=== PATIENT | male | born 1955 | race Caucasian/White ===

== ENCOUNTER 2016-08-21 11:35 | Emergency (ER) | payer BC ==
--- NOTE | 2016-08-21 12:14 | ER Document Report ---
ED GI/ - General Chief Complaint: Constipation Stated Complaint: NO BOWEL MOVEMENT Time Seen by Provider: 08/21/16 12:08 Notes: Patient is a 60-year-old male, past medical history arthritis on tramadol, presents after 24 hours of not having bowel movement. He says he normally has 2 bowel movements a day. He took the milk of magnesia just prior to arriving to the emergency room. He denies abdominal pain, rectal pain, nausea, vomiting , fevers or back pain. TRAVEL OUTSIDE OF THE [place] IN LAST 30 DAYS: No - Related Data Allergies/Adverse Reactions: No Known Allergies Allergy (Verified 08/21/16 11:36) Past Medical History - General Information source: Patient - Social History Smoking Status: Never Smoker Frequency of alcohol use: None Drug Abuse: None Family History: Reviewed & Not Pertinent Patient has suicidal ideation: No Patient has homicidal ideation: No - Past Medical History Cardiac Medical History: Reports: Hx DVT Renal/ Medical History: Reports: Hx Kidney Stones. Denies: Hx Peritoneal Dialysis Psychiatric Medical History: Denies: Hx Depression - Immunizations Hx Diphtheria, Pertussis, Tetanus Vaccination: Yes Review of Systems - Review of Systems Notes: REVIEW OF SYSTEMS: CONSTITUTIONAL: -fevers, -chills EENT: -eye pain, -difficulty swallowing, -nasal congestion CARDIOVASCULAR:-chest pain, -syncope. RESPIRATORY: -cough, -SOB GASTROINTESTINAL: -abdominal pain, - nausea, -vomiting, -diarrhea, + constipation GENITOURINARY: -dysuria, -hematuria MUSCULOSKELETAL: -back pain, -neck pain SKIN: -rash or skin lesions. HEMATOLOGIC: -easy bruising or bleeding. LYMPHATIC: -swollen, enlarged glands. NEUROLOGICAL: -altered mental status or loss of consciousness, -headache, - neurologic symptoms PSYCHIATRIC: -anxiety, -depression. ALL OTHER SYSTEMS REVIEWED AND NEGATIVE. Physical Exam - Vital signs Vitals: Temp Pulse Resp BP Pulse Ox 98.8 F 104 H 18 144/94 H 98 08/21/16 11:43 08/21/16 11:43 08/21/16 11:43 08/21/16 11:43 08/21/16 11:43 - Notes Notes: PHYSICAL EXAMINATION: GENERAL: Well-appearing, well-nourished and in no acute distress. HEAD: Atraumatic, normocephalic. EYES: Pupils equal round and reactive to light, extraocular movements intact, sclera anicteric, conjunctiva are normal. ENT: nares patent, oropharynx clear without exudates. Moist mucous membranes. NECK: Normal range of motion, supple without lymphadenopathy LUNGS: Breath sounds clear to auscultation bilaterally and equal. No wheezes rales or rhonchi. HEART: Regular rate and rhythm without murmurs ABDOMEN: Soft, nontender, normoactive bowel sounds. No guarding, no rebound. No masses appreciated. EXTREMITIES: Normal range of motion, no pitting or edema. No cyanosis. NEUROLOGICAL: Cranial nerves grossly intact. Normal speech, normal gait. Normal sensory and motor exams. PSYCH: Normal mood, normal affect. SKIN: Warm, Dry, normal turgor, no rashes or lesions noted. Course - Re-evaluation Re-evalutation: 08/21/16 13:02 Pt had bowel movement in the emergency room. Abdomen is completely soft and nontender with good bowel sounds. This does not appear to be a bowel obstruction at this time. Instructed him to begin stool softeners since he is on tramadol and to add fiber to his diet. He will follow-up with his primary care physician. - Vital Signs Vital signs: Temp Pulse Resp BP Pulse Ox 98.8 F 104 H 18 144/94 H 98 08/21/16 11:43 08/21/16 11:43 08/21/16 11:43 08/21/16 11:43 08/21/16 11:43 Discharge - Discharge Clinical Impression: Constipation Qualifiers: Constipation type: unspecified constipation type Qualified Code(s): K59.00 - Constipation, unspecified Condition: Stable Disposition: HOME, SELF-CARE Additional Instructions: ABDOMINAL PAIN: There are many causes of abdominal pain. Pain can mean a serious problem requiring surgery (such as appendicitis). It can also be an innocent problem that goes away on its own (such as a viral infection). Often, time must pass to determine the cause of pain. The physician does not feel that hospitalization is necessary, at present. Things may change within the next 24 hours. Call the doctor or come back for re- examination if any problems occur, such as: (1) Pain that becomes more severe, steady, or becomes concentrated in one specific area. Also, pain that is more severe with movement or coughing. (2) Vomiting that persists or becomes more frequent. (3) Blood in the vomitus, urine, or bowel movements. Blood in the stool may have a tarry or black appearance. (4) Shaking chills or fever greater than 100 degrees F. (5) The abdomen becomes more distended or swollen. (6) Bowel movements cease. (7) Failure to improve as expected. NORMAL EXAM AND WORKUP: At this time, your examination and workup show no significant abnormality. No significant abnormal physical findings are noted. All laboratory, EKG, and imaging (x-ray, CT scans, ultrasound) studies that were ordered show no significant abnormality. Although your examination and all studies that were ordered showed no significant abnormal finding, there are no examinations and no studies that are 100% accurate. There is always the possibility that some abnormality could exist and not be detected with physical examination or within the limits and capabilities of laboratory and other studies. You should return or follow up as you were instructed on your visit today for further evaluation if your symptoms do not resolve. CONSTIPATION: Constipation is a common problem. It is especially likely as you get older. Constipation is a common cause of abdominal pain, but sometimes causes no symptoms at all. Causes of constipation include certain medications, dehydration, diets, inactivity, and low-fiber intake. Rarely, it can be a symptom of underlying disease. The physician has evaluated you for this. Avoid constipation by eating a diet high in fiber, fruits, and vegetables. Drink plenty of liquids. Get regular exercise. If possible, avoid constipating medicines like narcotic pain medication. Some vitamin tablets can cause constipation. Stool softeners may be needed for difficult cases. An excellent stool softener is Konsyl which is available at [employer], and [employer] drug store. Just add a teaspoon to a glass of pineapple or orange juice daily or twice a day if needed. Laxatives are useful for occasional constipation. You should use them only when necessary. Too-frequent use can make your bowels dependent on them. Some over the counter laxatives available without prescription are: Milk of Magnesia, 1-2 tablespoons twice a day Dulcolax, 5 mg pill or 10 mg suppository. Citrate of Magnesia, 4-5 ounces a day for a day or two For acute constipation, Fleet's Enemas and Dulcolax suppositories are helpful. Chronic, residential use of laxatives or enemas is not a good idea. Your bowel may become dependant on them. You do not need to have a bowel movement every day. Many people do fine with a bowel movement every three or four days. You should call your doctor or return for re-evaluation if you pass blood in the stool, or if you develop fever or increasing abdominal pain. BULK LAXATIVES: Bulk laxatives make the stool softer and bulkier. They're useful for preventing constipation. You can choose between psyllium, methylcellulose, and polycarbophil. They are available without a prescription. Psyllium brand names include Konsyl, Metamucil, Perdiem, Effer-Syllium and Hydrocil. It's available as powder, flavored drink powder, or chewable. The usual dose of psyllium powder is one heaping teaspoon in water each morning, increasing to twice a day if needed. [place] juice can disguise the slightly grainy texture. Methylcellulose is marketed as Citrucel and other brands. The average dose is two grams in a cup of water one to three times a day. Polycarbophil is marketed as Fiber-Con. Take two tablets with a cup of water one to three times a day. LAXATIVE: A laxative agent has been prescribed for your condition. This should result in passage of stool within 12 hours. Some mild intestinal cramping is common as the hard stool begins to move. You may have loose or runny stools for a short time. Contact your doctor if there is severe cramping, vomiting, or passage of blood. Return for further care if this medicine fails to improve your condition. FOLLOW-UP CARE: If you have been referred to a physician for follow-up care, call the physician s office for an appointment as you were instructed or within the next two days. If you experience worsening or a significant change in your symptoms, notify the physician immediately or return to the Emergency Department at any time for re-evaluation. Prescriptions: Docusate Sodium [Colace 100 mg Capsule] 100 mg PO BID #20 capsule
[2016-08-21 13:25] VITALS: BP 128/72
== END 2016-08-21 13:00 | disposition home or self-care (01) ==
LOC: ER 11:35
DX: K59.00 Constipation, unspecified (principal)
CPT/HCPCS: 99283

== ENCOUNTER 2016-08-24 09:53 | Emergency (ER) | payer BC ==
[2016-08-24 10:10] VITALS: BP 133/83
--- NOTE | 2016-08-24 10:33 | ER Document Report ---
HPI - HPI Patient complains to provider of: Left upper arm pain Onset: Yesterday Onset/Duration: Sudden Quality of pain: Achy Pain Level: 2 Context: Patient states that he tripped over a curb at a gas station and jerked his left arm forward attempting to regain balance. Patient states that the quick movement pulled something in his upper arm. Patient denies any fall or striking any object with his left upper extremity. Patient complains of pain with certain movements with his left upper extremity. Associated Symptoms: Other - left upper arm pain Exacerbated by: Movement Relieved by: Remaining still Similar symptoms previously: No Recently seen / treated by doctor: No - ROS ROS below otherwise negative: Yes Systems Reviewed and Negative: Yes All other systems reviewed and negative - CONSTITUTIONAL Constitutional: DENIES: Fever - NEURO Neurology: DENIES: Headache, Weakness - CARDIOVASCULAR Cardiovascular: DENIES: Chest pain - RESPIRATORY Respiratory: DENIES: Trouble Breathing - MUSCULOSKELETAL Musculoskeletal: REPORTS: Extremity pain. 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 Denies: Hx Peritoneal Dialysis Psychiatric Medical History: Denies: Hx Depression Surgical Hx: Negative - Immunizations Hx Diphtheria, Pertussis, Tetanus Vaccination: Yes Vertical Provider Document - CONSTITUTIONAL Agree With Documented VS: Yes Exam Limitations: No Limitations General Appearance: WD/WN, No Apparent Distress - INFECTION CONTROL TRAVEL OUTSIDE OF THE [place] IN LAST 30 DAYS: No - HEENT HEENT: Atraumatic, Normocephalic - NECK Neck: Normal Inspection, Supple - RESPIRATORY Respiratory: No Respiratory Distress O2 Sat by Pulse Oximetry: 98 - CARDIOVASCULAR Pulses: Normal: Radial - BACK Back: Normal Inspection - MUSCULOSKELETAL/EXTREMETIES Musculoskeletal/Extremeties: MAEW, FROM, Tender - tenderness with palpation over left deltoid, no shoulder deformity or dislocation, No Edema - NEURO Level of Consciousness: Awake, Alert, Appropriate Motor/Sensory: No Motor Deficit - DERM Integumentary: Warm, Dry, No Rash Course - Re-evaluation Re-evalutation: 08/24/16 offered pt sling, pt declined - Vital Signs Vital signs: Temp Pulse Resp BP Pulse Ox 98.3 F 69 18 133/83 H 98 08/24/16 10:09 08/24/16 10:09 08/24/16 10:09 08/24/16 10:09 08/24/16 10:09 Discharge - Discharge Clinical Impression: Muscle strain, upper arm Qualifiers: Encounter type: initial encounter Laterality: left Qualified Code(s): S46.912A - Strain of unspecified muscle, fascia and tendon at shoulder and upper arm level, left arm, initial encounter Condition: Stable Disposition: HOME, SELF-CARE Instructions: Muscle Relaxers ([facility]), Muscle Strain ([facility]) Additional Instructions: Return immediately for any new or worsening symptoms Followup with your primary care provider, call tomorrow to make a followup appointment You may take your Aleve at home to help with your symptoms. Follow-up with orthopedic doctor for any continued pain or problems Prescriptions: Methocarbamol [Robaxin 500 Mg Tablet] 500 mg PO TID PRN #15 tablet PRN Reason: Referrals: ALEX KATZ MD [COMMUNITY BASED STAFF] - Follow up as needed
== END 2016-08-24 10:42 | disposition home or self-care (01) ==
LOC: ER 09:53
DX: S46.912A Strain of unspecified muscle, fascia and tendon at shoulder and upper arm level, left arm, initial encounter (principal); W22.8XXA Striking against or struck by other objects, initial encounter; Y92.524 Gas station as the place of occurrence of the external cause; Z86.718 Personal history of other venous thrombosis and embolism; Z87.442 Personal history of urinary calculi
CPT/HCPCS: 99283

== ENCOUNTER 2017-04-04 13:32 | Emergency (ER) | payer BC ==
--- NOTE | 2017-04-04 14:38 | ER Document Report ---
HPI - HPI Pain Level: 2 Notes: Patient is a 61-year-old male who presents to the ED complaining of a rash to his buttock crease 2 weeks. Patient states that he feels like there is a slight tear in there as well. Patient has been applying Vaseline with minimal relief. Patient has not noticed any bleeding, purulent discharge, or abscess to the area. He has no other concerns or complaints at this time. Denies any sexual intercourse. He has no concern of STD or STI. He denies any drug allergies. Denies any headache, fever, neck pain, URI, sore throat, chest pain , palpitations, syncope, cough, shortness of breath, wheeze, dyspnea, abdominal pain, nausea/vomiting/diarrhea, urinary retention, dysuria, hematuria, back pain , loss of control of bowel or bladder, numbness/tingling, saddle anesthesia, muscle paralysis/weakness. - ROS Systems Reviewed and Negative: Yes All other systems reviewed and negative Past Medical History - Social History Smoking Status: Never Smoker Family History: Reviewed & Not Pertinent - Past Medical History Cardiac Medical History: Reports: Hx DVT Renal/ Medical History: Reports: Hx Kidney Stones. Denies: Hx Peritoneal Dialysis Psychiatric Medical History: Denies: Hx Depression - Immunizations Hx Diphtheria, Pertussis, Tetanus Vaccination: Yes Vertical Provider Document - CONSTITUTIONAL Agree With Documented VS: Yes Notes: PHYSICAL EXAMINATION: GENERAL: Well-appearing, well-nourished and in no acute distress. LUNGS: Breath sounds clear to auscultation bilaterally and equal. No wheezes rales or rhonchi. HEART: Regular rate and rhythm without murmurs, rubs, gallops. ABDOMEN: Soft, nontender, nondistended abdomen. No guarding, no rebound. No masses appreciated. Normal bowel sounds present. No CVA tenderness bilaterally. Rectal/buttocks: No hemorrhoids or abscess noted. + small fissure with a tinea cruris rash. Rash is moist, mildly erythemic, macular, non-tender contained to the crease. No other lesions, ulcerations, or masses appreciated. Extremities: No cyanosis, clubbing, or edema b/l. Peripheral pulses 2+. Capillary refill less than 3 seconds. NEUROLOGICAL: Normal speech, normal gait. Normal sensory, motor exams PSYCH: Normal mood, normal affect. SKIN: see buttock/rectal exam. Warm, Dry, normal turgor, no rashes or lesions noted. - INFECTION CONTROL TRAVEL OUTSIDE OF THE [place] IN LAST 30 DAYS: No Course - Re-evaluation Re-evalutation: 04/04/17 14:36 Patient is an afebrile, well-hydrated, 61-year-old male who presents to the ED with tinea cruris to his buttocks based on H&P today. Vitals are stable. PE is otherwise unremarkable. No other labs or imaging warranted at this time based on H&P. Low suspicion for any necrotizing fasciitis, STD/STI, thrombosed hemorrhoid, rectal abscess, sepsis, or other systemic emergent condition at this time. I will send him home with a prescription for clotrimazole to use as directed. Recommend conservative measures for symptoms. Recheck with your PCM in 1 week. Consider consult with dermatology. Return to the ED with any worsening/concerning symptoms otherwise as reviewed discharge. Patient is in agreement. Discharge - Discharge Clinical Impression: Tinea cruris Condition: Stable Disposition: HOME, SELF-CARE Instructions: Skin Fungus ([facility]) Additional Instructions: Keep the skin clean Wash with mild soap and water Keep the skin dry, avoid vaseline Tylenol/ibuprofen if needed Triple antibiotic ointment if any break in the skin Take medication as directed Monitor for any worsening symptoms Recheck with your PCM in 1 week Consider consult with Dermatology for ongoing/worsening symptoms Return to the ED with any worsening symptoms and/or development of fever, headache, chest pain, palpitations, syncope, shortness of breath, trouble breathing, abdominal pain, n/v/d, abscess, purulent discharge, red streaks, worsening swelling, or other worsening symptoms that are concerning to you. Prescriptions: Clotrimazole [Athletic Foot Cream] 1 applic TP BID #30 gm Forms: Elevated Blood Pressure Referrals: LANDRY LOZA DO [ACTIVE STAFF] - Follow up as needed
== END 2017-04-04 14:51 | disposition home or self-care (01) ==
LOC: ER 13:32
DX: B35.6 Tinea cruris (principal)
CPT/HCPCS: 99282

== ENCOUNTER 2017-04-19 14:50 | Emergency (ER) | payer BC ==
--- NOTE | 2017-04-19 15:05 | ER Document Report ---
ED Medical Screen (RME) - General Chief Complaint: Leg Swelling Stated Complaint: LEG PAIN/SWELLING Time Seen by Provider: 04/19/17 15:03 Mode of Arrival: Ambulatory Information source: Patient TRAVEL OUTSIDE OF THE [place] IN LAST 30 DAYS: No - HPI Patient complains to provider of: L leg pain/swelling Onset: Other - Pt. with 3 days h/o atraumatic L leg pain and swelling - Related Data Allergies/Adverse Reactions: No Known Allergies Allergy (Verified 04/04/17 13:33) Past Medical History - Past Medical History Cardiac Medical History: Reports: Hx DVT Renal/ Medical History: Reports: Hx Kidney Stones. Denies: Hx Peritoneal Dialysis Psychiatric Medical History: Denies: Hx Depression - Immunizations Hx Diphtheria, Pertussis, Tetanus Vaccination: Yes Physical Exam - Vital signs Vitals: Temp Pulse Resp BP Pulse Ox 98.5 F 64 16 138/86 H 97 04/19/17 14:57 04/19/17 14:57 04/19/17 14:57 04/19/17 14:57 04/19/17 14:57 Course - Vital Signs Vital signs: Temp Pulse Resp BP Pulse Ox 98.5 F 64 16 138/86 H 97 04/19/17 14:57 04/19/17 14:57 04/19/17 14:57 04/19/17 14:57 04/19/17 14:57
[2017-04-19 15:58] LABS: ABSOLUTE EOSINOPHILS # (AUTO) 0.2 10^3/uL (0.0-0.6); ABSOLUTE LYMPHOCYTES (AUTO) 1.7 10^3/uL (0.5-4.7); ABSOLUTE MONOCYTES (AUTO) 0.7 10^3/uL (0.1-1.4); ABSOLUTE NEUT (AUTO) 4.8 10^3/uL (1.7-8.2); BASOPHILS % (AUTO) 0.3 % (0-2); EOSINOPHILS % (AUTO) 3.1 % (0-6); HEMATOCRIT 39.1 % (37.9-51.0); HEMOGLOBIN 13.2 g/dL (13.5-17.0); LYMPHOCYTES % (AUTO) 22.7 % (13-45); MEAN CORPUSCULAR HEMOGLOBIN 31.2 pg (27.0-33.4); MEAN CORPUSCULAR HGB CONC 33.7 g/dL (32.0-36.0); MEAN CORPUSCULAR VOLUME 93 fl (80-97); PLATELET COUNT 204 10^3/uL (150-450); RED BLOOD COUNT 4.21 10^6/uL (4.35-5.55); RED CELL DISTRIBUTION WIDTH 14.1 % (11.5-14.0); SEGMENTED NEUTROPHILS % (AUTO) 64.9 % (42-78); TOTAL CELLS COUNTED % (AUTO) 100 %; WHITE BLOOD COUNT 7.4 10^3/uL (4.0-10.5)
[2017-04-19 16:16] LABS: ALANINE AMINOTRANSFERASE 33 U/L (21-72); ALBUMIN 3.8 g/dL (3.5-5.0); ALKALINE PHOSPHATASE 49 U/L (38-126); ANION GAP 9 (5-19); ASPARTATE AMINO TRANSFERASE 24 U/L (17-59); BILIRUBIN,DIRECT 0.4 mg/dL (0.0-0.4); BILIRUBIN,TOTAL 0.5 mg/dL (0.2-1.3); BLOOD UREA NITROGEN 17 mg/dL (7-20); CALCIUM 8.5 mg/dL (8.4-10.2); CARBON DIOXIDE 24 mmol/L (22-30); CHLORIDE 108 mmol/L (98-107); GLUCOSE 91 mg/dL (75-110); POTASSIUM 4.2 mmol/L (3.6-5.0); SODIUM 141.1 mmol/L (137-145); TOTAL PROTEIN 6.3 g/dL (6.3-8.2)
--- NOTE | 2017-04-19 18:32 | ER Document Report ---
ED Extremity Problem, Lower - General Mode of Arrival: Ambulatory Information source: Patient TRAVEL OUTSIDE OF THE [place] IN LAST 30 DAYS: No <JUSTINE IYER - Last Filed: 04/19/17 19:20> <PAMELA VILLELA - Last Filed: 04/19/17 23:38> - General Chief Complaint: Leg Swelling Stated Complaint: LEG PAIN/SWELLING Time Seen by Provider: 04/19/17 15:03 Notes: Patient is a 61-year-old male who presents to the ER today for left lower extremity swelling and pain 3 days. Patient has a history of a DVT over 2 years ago, used to be on Xarelto but is not anymore. Patient denies any injury. Patient states "this is just like my blood clot in the past." Patient has not had any recent travel. He denies any chest pain or shortness of breath. (JUSTINE IYER) - Related Data Allergies/Adverse Reactions: No Known Allergies Allergy (Verified 04/19/17 15:05) Past Medical History - General Information source: Patient - Social History Smoking Status: Former Smoker Chew tobacco use (# tins/day): No Frequency of alcohol use: None Drug Abuse: None Family History: Reviewed & Not Pertinent Patient has suicidal ideation: No Patient has homicidal ideation: No - Past Medical History Cardiac Medical History: Reports: Hx DVT Renal/ Medical History: Reports: Hx Kidney Stones. Denies: Hx Peritoneal Dialysis Psychiatric Medical History: Denies: Hx Depression - Immunizations Hx Diphtheria, Pertussis, Tetanus Vaccination: Yes <JUSTINE IYER - Last Filed: 04/19/17 19:20> Review of Systems - Review of Systems Constitutional: No symptoms reported EENT: No symptoms reported Cardiovascular: No symptoms reported Respiratory: No symptoms reported Gastrointestinal: No symptoms reported Genitourinary: No symptoms reported Male Genitourinary: No symptoms reported Musculoskeletal: See HPI Skin: See HPI Hematologic/Lymphatic: No symptoms reported Neurological/Psychological: No symptoms reported <JUSTINE IYER - Last Filed: 04/19/17 19:20> Physical Exam <JUSTINE IYER - Last Filed: 04/19/17 19:20> <PAMELA VILLELA - Last Filed: 04/19/17 23:38> - Vital signs Vitals: Temp Pulse Resp BP Pulse Ox 98.5 F 64 16 138/86 H 97 04/19/17 14:57 04/19/17 14:57 04/19/17 14:57 04/19/17 14:57 04/19/17 14:57 - Notes Notes: PHYSICAL EXAMINATION: GENERAL: Well-appearing and in no acute distress. HEAD: Atraumatic, normocephalic. EYES: Pupils equal round and reactive to light, extraocular movements intact, sclera anicteric, conjunctiva are normal. NECK: Normal range of motion, supple without lymphadenopathy LUNGS: CTAB and equal. No wheezes rales or rhonchi. HEART: Regular rate and rhythm without murmurs ABDOMEN: Soft, no tenderness. No guarding, no rebound BACK: no vertebral tenderness, normal ROM GI/: no CVA tenderness EXTREMITIES: Normal range of motion, trace pitting edema to the left lower extremity, tender to palpation, Homans sign negative. No cyanosis. NEUROLOGICAL: Cranial nerves grossly intact. Normal sensory/motor exams. PSYCH: Normal mood, normal affect. SKIN: Warm, Dry, normal turgor, see extremities above (JUSTINE IYER) Course - Laboratory Result Diagrams: 04/19/17 15:35 04/19/17 15:35 <JUSTINE IYER - Last Filed: 04/19/17 19:20> - Laboratory Result Diagrams: 04/19/17 15:35 04/19/17 15:35 <PAMELA VILLELA - Last Filed: 04/19/17 23:38> - Re-evaluation Re-evalutation: 04/19/17 18:32 Lab work is unremarkable today, we are awaiting Doppler. 04/19/17 19:20 care handed off to JUICE Max at this time. (JUSTINE IYER) Venous Doppler of the lower extremity read as normal. No erythema, abnormal heat, or significant tenderness suggesting infection or cellulitis. Normal range of motion of the joint. Patient reporting difficulty with boots which she has now exchanged. Patient already has compression stockings. Discussed results, recommendations, follow-up recommendations, return precautions. Patient states understanding and agreement. Stable at time of discharge. ( PAMELA VILLELA) - Vital Signs Vital signs: Temp Pulse Resp BP Pulse Ox 99.0 F 72 18 143/77 H 94 04/19/17 21:52 04/19/17 21:52 04/19/17 21:52 04/19/17 21:52 04/19/17 21:52 - Laboratory Laboratory results interpreted by me: 04/19/17 04/19/17 15:35 15:35 RBC 4.21 L Hgb 13.2 L RDW 14.1 H Chloride 108 H Discharge <GEMMACELEJUSTINE - Last Filed: 04/19/17 19:20> <MAU VILLELAAN - Last Filed: 04/19/17 23:38> - Discharge Clinical Impression: Left leg swelling Condition: Stable Disposition: HOME, SELF-CARE Additional Instructions: The Doppler ultrasound of your leg is negative. Based on your examination the swelling seems to be from your boot. I recommend elevating her foot, use your compression stocking, take the anti-inflammatory for the next few days as prescribed. Follow-up with your primary care provider. Return for any concerning or worsening symptoms including developing redness or pain, shortness of breath, or any other concerning symptoms. Prescriptions: Naproxen [Naprosyn 375 Mg Tablet] 375 mg PO BID PRN #20 tablet PRN Reason: Forms: Return to Work, Elevated Blood Pressure Referrals: DONYA DOWLING PA-C [Primary Care Provider] - Follow up as needed
--- NOTE | 2017-04-19 20:43 | RADIOLOGY REPORT (SQ) ---
EXAM DESCRIPTION: VENOUS UNILATERAL LOWER COMPLETED DATE/TIME: 04/19/2017 8:27 pm REASON FOR STUDY: atraumatic L leg pain COMPARISON: None. TECHNIQUE: Dynamic and static hutchinson scale and color images acquired of the left leg venous system. Se lected spectral images acquired with additional compression and augmentation maneuvers. The contralat eral common femoral vein and saphenofemoral junction were also imaged. Images stored on PACS. LIMITATIONS: None. FINDINGS: COMMON FEMORAL: Normal phasicity, compression and augmentation. No visualized echogenic ma terial on hutchinson scale. No defects on color images. FEMORAL: Normal compression and augmentation. No visualized echogenic material on hutchinson scale. No defe cts on color images. POPLITEAL: Normal compression, augmentation. No visualized echogenic material on hutchinson scale. No defec ts on color images. CALF VESSELS: Normal compression, augmentation. No visualized echogenic material on hutchinson scale. No de fects on color images. GSV and SSV: Normal compression, augmentation. No visualized echogenic material on hutchinson scale. No def ects on color images. ANY DEEP VENOUS INSUFFICIENCY: Not evaluated. ANY EVIDENCE OF POPLITEAL CYST: No. OTHER: No other significant finding. CONTRALATERAL COMMON FEMORAL VEIN AND SAPHENOFEMORAL JUNCTION: Normal phasicity, compression and augmentation. No visualized echogenic material on hutchinson scale. No de fects on color images. IMPRESSION: NO EVIDENCE OF DVT OR SVT IN THE LEFT LEG. TECHNICAL DOCUMENTATION: JOB ID: [id number] [email or web address]- All Rights Reserved Reading location - IP/workstation name: [email or web address]
[2017-04-19 21:55] VITALS: BP 143/77
== END 2017-04-19 21:55 | disposition home or self-care (01) ==
LOC: ER 14:50
DX: M79.89 Other specified soft tissue disorders (principal); M79.605 Pain in left leg; Z86.718 Personal history of other venous thrombosis and embolism; Z87.891 Personal history of nicotine dependence
CPT/HCPCS: 36415; 80053; 85025; 93971; 99284

== ENCOUNTER 2017-08-18 00:55 | Emergency (ER) | payer BC ==
[2017-08-18] MEDS ORDERED: CEPHALEXIN 500 MG CAPSULE PO ONE (02:07)
--- NOTE | 2017-08-18 02:11 | ER Document Report ---
ED General - General Chief Complaint: Foot Pain Stated Complaint: LEFT FOOT PAIN Time Seen by Provider: 08/18/17 01:31 Notes: Patient is a 61 year old male with a prior medical history of a left lower extremity DVT 2 years ago with subsequent chronic venous stasis of the left lower extremity who presents with 24 hours of progressively worsening redness and pain to the distal left lower extremity around the site of 2 prior ulcers that he has had. He reports that the ulcers are being managed by Dr. Lilly in wound care. He notes that several days ago there was no redness around this area and that in the past 24-48 hours he has noted progressively worsening redness to the area with an associated burning, throbbing, stinging pain. Nothing improves or worsens his symptoms. He is uncertain of whether or not he has had similar issues with these ulcers in the past. He denies any fever or constitutional symptoms. He has not seen Dr. Lilly regarding today's concerns. TRAVEL OUTSIDE OF THE [place] IN LAST 30 DAYS: No - Related Data Allergies/Adverse Reactions: No Known Allergies Allergy (Verified 04/19/17 15:05) Past Medical History - General Information source: Patient - Social History Smoking Status: Former Smoker Frequency of alcohol use: None Drug Abuse: None Lives with: Alone Family History: Reviewed & Not Pertinent Patient has suicidal ideation: No Patient has homicidal ideation: No - Past Medical History Cardiac Medical History: Reports: Hx DVT Renal/ Medical History: Reports: Hx Kidney Stones. Denies: Hx Peritoneal Dialysis Psychiatric Medical History: Denies: Hx Depression - Immunizations Hx Diphtheria, Pertussis, Tetanus Vaccination: Yes Review of Systems - Review of Systems Notes: Constitutional: Negative for fever. HENT: Negative for sore throat. Eyes: Negative for visual changes. Cardiovascular: Negative for chest pain. Respiratory: Negative for shortness of breath. Gastrointestinal: Negative for abdominal pain, vomiting or diarrhea. Genitourinary: Negative for dysuria. Musculoskeletal: Negative for back pain. Skin: Positive for rash. Neurological: Negative for headaches, weakness or numbness. 10 point ROS negative except as marked above and in HPI. Physical Exam - Vital signs Vitals: Temp Pulse Resp BP Pulse Ox 98.3 F 67 16 137/81 H 96 08/18/17 01:05 08/18/17 01:05 08/18/17 01:05 08/18/17 01:05 08/18/17 01:05 Interpretation: Normal Notes: PHYSICAL EXAMINATION: GENERAL: Well-appearing, well-nourished and in no acute distress. HEAD: Atraumatic, normocephalic. EYES: Pupils equal round and reactive to light, extraocular movements intact, sclera anicteric, conjunctiva are normal. ENT: nares patent, oropharynx clear without exudates. Moist mucous membranes. NECK: Normal range of motion, supple without lymphadenopathy LUNGS: Breath sounds clear to auscultation bilaterally and equal. No wheezes rales or rhonchi. HEART: Regular rate and rhythm without murmurs ABDOMEN: Soft, nontender, normoactive bowel sounds. No guarding, no rebound. No masses appreciated. EXTREMITIES: Normal range of motion, no pitting or edema. No cyanosis. NEUROLOGICAL: No focal neurological deficits. Moves all extremities spontaneously and on command. PSYCH: Normal mood, normal affect. SKIN: Warm, Dry, normal turgor, there are 2 small punctate, overall well-healed ulcerations on the medial distal aspect of the left lower extremity with a large surrounding area of erythema that is warm to touch. Cracked, peeling, dry skin to the same area. Course - Re-evaluation Re-evalutation: 08/18/17 02:06 Patient presents with signs and symptoms most consistent with an acute cellulitis associated with multiple chronic venous stasis ulcers on the distal left lower extremity. The patient is otherwise extremely well in appearance, vitals within normal limits, no constitutional symptoms. No need for labs or imaging at this time point this is a chronic issue that appears to have developed an acute associated infection. Patient has been started on cephalexin. I have encouraged the patient to follow-up closely with Dr. Lilly who is managing his chronic venous ulcers. At this time will discharge with return precautions and follow-up recommendations. Verbal discharge instructions given a the bedside and opportunity for questions given. Medication warnings reviewed. Patient is in agreement with this plan and has verbalized understanding of return precautions and the need for primary care follow-up in the next 24-72 hours. - Vital Signs Vital signs: Temp Pulse Resp BP Pulse Ox 98.3 F 67 16 137/81 H 96 08/18/17 01:05 08/18/17 01:05 08/18/17 01:05 08/18/17 01:05 08/18/17 01:05 Discharge - Discharge Clinical Impression: Chronic ulcer of ankle Qualifiers: Laterality: right Non-pressure ulcer stage: unspecified non-pressure ulcer stage Qualified Code(s): L97.319 - Non-pressure chronic ulcer of right ankle with unspecified severity Cellulitis Qualifiers: Site of cellulitis: unspecified site Qualified Code(s): L03.90 - Cellulitis, unspecified Condition: Good Disposition: HOME, SELF-CARE Additional Instructions: The rash is likely due to infection of your skin. You need to take the antibiotics as prescribed. Do not stop even if the rash goes away until you have completed all the antibiotics. You should also return if you develop fevers with temperature greater than 101, persistent vomiting, worsening pain, or have any other symptoms that are concerning to you. Prescriptions: Cephalexin Monohydrate [Keflex 500 mg Capsule] 500 mg PO Q6H 7 Days capsule Forms: Return to Work Referrals: PAOLO LILLY MD [ACTIVE STAFF] - Follow up tomorrow
[2017-08-18 03:18] VITALS: BP 120/80
== END 2017-08-18 03:17 | disposition home or self-care (01) ==
LOC: ER 00:55
DX: L97.319 Non-pressure chronic ulcer of right ankle with unspecified severity (principal); L03.90 Cellulitis, unspecified; I87.8 Other specified disorders of veins; Z86.718 Personal history of other venous thrombosis and embolism; Z87.891 Personal history of nicotine dependence
CPT/HCPCS: 99283

== ENCOUNTER 2017-09-11 18:00 | Emergency (ER) | payer BC ==
[2017-09-11 18:06] VITALS: BP 113/70
--- NOTE | 2017-09-11 18:35 | ER Document Report ---
HPI - HPI Patient complains to provider of: Poison tara and swollen toes Onset: Other - Poison tara on his arms for 3 days, chronic swelling and erythema to his lower leg although 2 toes are more swollen than normal Pain Level: 2 Context: 62-year-old male nondiabetic complaining of pruritic forearm and antecubital and upper neck rash which he thinks is poison tara. He also is concerned about the second and third toes on his left foot are more swollen than normal he has a chronic rash to his left lower leg that he is seen Dr. Jayme Lilly several times for. No fever or chills. He is supposed to wear compressive stocking on that left leg due to chronic edema and he has a pulsating compression device that he wears at night which does help with the swelling. He is not taking any antibiotics at this time. Associated Symptoms: None Exacerbated by: Denies Relieved by: Other - See above - ROS ROS below otherwise negative: Yes Systems Reviewed and Negative: Yes All other systems reviewed and negative Past Medical History - General Information source: Patient - Social History Smoking Status: Unknown if Ever Smoked Frequency of alcohol use: None Drug Abuse: None Lives with: Family Family History: Reviewed & Not Pertinent Patient has suicidal ideation: No Patient has homicidal ideation: No - Past Medical History Cardiac Medical History: Reports: Hx DVT Renal/ Medical History: Reports: Hx Kidney Stones. Denies: Hx Peritoneal Dialysis Psychiatric Medical History: Denies: Hx Depression - Immunizations Hx Diphtheria, Pertussis, Tetanus Vaccination: Yes Vertical Provider Document - CONSTITUTIONAL Agree With Documented VS: Yes Exam Limitations: No Limitations - INFECTION CONTROL TRAVEL OUTSIDE OF THE [place] IN LAST 30 DAYS: No - MUSCULOSKELETAL/EXTREMETIES Musculoskeletal/Extremeties: MAEW, Edema - Left lower leg with no hair. 2+ DP. [place] mildly warm chronic rash to his anterior and medial left lower leg there is some excoriation in the center with some weeping. He also has white macerated skin between his toes which appears to be tinea pedis. - NEURO Level of Consciousness: Awake, Alert - DERM Integumentary: Rash - See above. Excoriated dry confluent rash to his antecubital spaces and upper neck which is not infected and if it is poison tara it is starting to resolve, looks more like a dermatitis. Course - Vital Signs Vital signs: Temp Pulse Resp BP Pulse Ox 98.8 F 63 16 113/70 96 09/11/17 18:04 09/11/17 18:04 09/11/17 18:04 09/11/17 18:04 09/11/17 18:04 Discharge - Discharge Clinical Impression: Venous insufficiency, Peripheral edema, Tinea pedis, Left leg cellulitis, Arm dermatitis Condition: Good Disposition: HOME, SELF-CARE Instructions: Clindamycin ([facility]), Elevate the Injury ([facility]), Topical Antifungal ( [facility]), Warm Packs ([facility]) Additional Instructions: Antifungal cream 3 times a day between your toes topical hydrocortisone to the arm skin three times per day topical lamisil between your toes three times per day to treat the skin fungas Bacitracin to the open area on the left lower leg, telfa, gauze Elevate with warm compress, elevate above your heart Call tomorrow and schedule an appointment with Dr. Jayme Lilly for recheck tomorrow or Friday Return to the emergency room for any fever, increased swelling, increased pain or any concerns Prescriptions: Clindamycin HCl [Cleocin 150 mg Capsule] 300 mg PO TID #42 capsule Forms: Return to Work Referrals: PAOLO LILLY MD [ACTIVE STAFF] - Follow up tomorrow
[2017-09-11] MEDS ORDERED: CLINDAMYCIN HCL 150 MG CAPSULE PO ONE (19:09)
[2017-09-11] MEDS ORDERED: NYSTATIN CREAM 15 GM TP ONE (19:09)
== END 2017-09-11 19:46 | disposition home or self-care (01) ==
LOC: ER 18:00
DX: L03.116 Cellulitis of left lower limb (principal); L30.9 Dermatitis, unspecified; B35.3 Tinea pedis; I87.2 Venous insufficiency (chronic) (peripheral); R60.0 Localized edema; Z86.718 Personal history of other venous thrombosis and embolism
CPT/HCPCS: 99282; J3490

== ENCOUNTER 2017-09-16 17:36 | Emergency (ER) | payer BC ==
[2017-09-16 17:50] VITALS: BP 141/77
[2017-09-16] MEDS ORDERED: SILVER SULFADIAZINE 1% CREAM 25 GM TP ONE (19:19)
--- NOTE | 2017-09-16 19:22 | ER Document Report ---
HPI - HPI Pain Level: 3 Notes: Patient is a 62-year-old male with a history of chronic venous stasis ulcers to his left lower extremity who presents to the ED for wound rewrapping. Patient states that he has been going to the wound clinic and is on antibiotics for cellulitis. Patient states that he had it dressed yesterday, but it was too tight so he cut part of it off. Patient states that he went to wound clinic today but they were too busy so he came here to get another wrap placed. He has no other concerns or complaints. Patient states that his wound is starting to feel better overall. Denies any drug allergies. Denies any headache, fever , URI, sore throat, chest pain, palpitations, syncope, cough, shortness of breath, wheeze, dyspnea, abdominal pain, nausea/vomiting/diarrhea, urinary retention, dysuria, hematuria. - ROS Systems Reviewed and Negative: Yes All other systems reviewed and negative - CONSTITUTIONAL Constitutional: DENIES: Fever, Chills - EENT EENT: DENIES: Sore Throat, Ear Pain, Eye problems - NEURO Neurology: DENIES: Headache, Weakness, Vision blurred, Dizzinesss / Vertigo - CARDIOVASCULAR Cardiovascular: DENIES: Chest pain - RESPIRATORY Respiratory: DENIES: Trouble Breathing, Coughing - GASTROINTESTINAL Gastrointestinal: DENIES: Abdominal Pain, Black / Bloody Stools - URINARY Urinary: DENIES: Dysuria, Urgency, Frequency - MUSCULOSKELETAL Musculoskeletal: REPORTS: Extremity pain - L foot Past Medical History - Social History Smoking Status: Unknown if Ever Smoked Family History: Reviewed & Not Pertinent Patient has suicidal ideation: No Patient has homicidal ideation: No - Past Medical History Cardiac Medical History: Reports: Hx DVT Renal/ Medical History: Reports: Hx Kidney Stones. Denies: Hx Peritoneal Dialysis Psychiatric Medical History: Denies: Hx Depression - Immunizations Hx Diphtheria, Pertussis, Tetanus Vaccination: Yes Vertical Provider Document - CONSTITUTIONAL Agree With Documented VS: Yes Notes: PHYSICAL EXAMINATION: GENERAL: Well-appearing, well-nourished and in no acute distress. LUNGS: Breath sounds clear to auscultation bilaterally and equal. No wheezes rales or rhonchi. HEART: Regular rate and rhythm without murmurs, rubs, gallops. Musculoskeletal: Lt LE: + erythema to the dorsal foot and LE. No ulcerations noted. No abscess, streaks, or purulence. FROM to passive/active. Strength 5+/ 5. N/V intact distal. Extremities: No cyanosis, clubbing, or edema b/l. Peripheral pulses 2+. Capillary refill less than 3 seconds. NEUROLOGICAL: Normal speech, limping gait. Normal sensory, motor exams PSYCH: Normal mood, normal affect. SKIN: see above. Warm, Dry, normal turgor, no rashes or lesions noted. - INFECTION CONTROL TRAVEL OUTSIDE OF THE [place] IN LAST 30 DAYS: No Course - Re-evaluation Re-evalutation: 09/16/17 19:28 Patient is an afebrile, well-hydrated, 62-year-old male who presents to the ED with chronic venous stasis ulceration/infection who presents for re-grafting of his wound. Vitals are acceptable without any significant tachycardia, tachypnea , or hypoxia. PE is otherwise unremarkable. Patient is already on antibiotics. Wound was redressed for the patient using Silvadene and a compression wrap. Patient advised that he needs to follow-up with the wound clinic in the next couple days. Return to the ED with any worsening/concerning symptoms otherwise as reviewed in discharge. Patient is otherwise nontoxic appearing. Patient is in agreement. - Vital Signs Vital signs: Temp Pulse Resp BP Pulse Ox 99.2 F 82 20 141/77 H 98 09/16/17 17:49 09/16/17 17:49 09/16/17 17:49 09/16/17 17:49 09/16/17 17:49 Discharge - Discharge Clinical Impression: Change or removal of wound dressing Condition: Stable Disposition: HOME, SELF-CARE Additional Instructions: Keep the skin clean Tylenol/ibuprofen if needed Take medication as directed Monitor for any worsening symptoms Recheck with your PCM in 3-5 days See your wound clinic in the next 1-2 days* Return to the ED with any worsening symptoms and/or development of fever, headache, chest pain, palpitations, syncope, shortness of breath, trouble breathing, abdominal pain, n/v/d, abscess, purulent discharge, red streaks, worsening swelling, or other worsening symptoms that are concerning to you. Forms: Elevated Blood Pressure Referrals: DONYA DOWLING PA-C [Primary Care Provider] - Follow up as needed Wound Care [Provider Group] - 09/18/17
== END 2017-09-16 20:01 | disposition home or self-care (01) ==
LOC: ER 17:36
DX: Z48.01 Encounter for change or removal of surgical wound dressing (principal); Z87.442 Personal history of urinary calculi; Z86.718 Personal history of other venous thrombosis and embolism
CPT/HCPCS: 99283

== ENCOUNTER 2017-10-24 12:40 | Emergency (ER) | payer BC ==
[2017-10-24] MEDS ORDERED: NORMAL SALINE 1000 ML 1,000 ML IV ONE (13:34)
[2017-10-24] MEDS ORDERED: NORMAL SALINE 1000 ML 1,000 ML IV PRN (13:34)
--- NOTE | 2017-10-24 13:35 | ER Document Report ---
ED Medical Screen (RME) - General Chief Complaint: Leg Swelling Stated Complaint: POSSIBLE LEFT FOOT INFECTION Time Seen by Provider: 10/24/17 13:33 Notes: 62 years old male presents today with left lower leg swelling redness and pain. Diagnosed as bad cellulitis and referred here by the primary care physicians to be admitted. TRAVEL OUTSIDE OF THE [place] IN LAST 30 DAYS: No - Related Data Allergies/Adverse Reactions: No Known Allergies Allergy (Verified 09/16/17 17:37) Past Medical History - Social History Chew tobacco use (# tins/day): No Frequency of alcohol use: None Drug Abuse: None - Past Medical History Cardiac Medical History: Reports: Hx DVT Renal/ Medical History: Reports: Hx Kidney Stones. Denies: Hx Peritoneal Dialysis Psychiatric Medical History: Denies: Hx Depression - Immunizations Hx Diphtheria, Pertussis, Tetanus Vaccination: Yes Physical Exam - Vital signs Vitals: Temp Pulse Resp BP Pulse Ox 99.2 F 78 16 124/81 97 10/24/17 12:49 10/24/17 12:49 10/24/17 12:49 10/24/17 12:49 10/24/17 12:49 Course - Vital Signs Vital signs: Temp Pulse Resp BP Pulse Ox 99.2 F 78 16 124/81 97 10/24/17 12:49 10/24/17 12:49 10/24/17 12:49 10/24/17 12:49 10/24/17 12:49 Doctor's Discharge - Discharge Referrals: DONYA DOWLING PA-C [Primary Care Provider] - Follow up as needed
[2017-10-24] MEDS ORDERED: CLINDAMYCIN 600 MG/D5W RTU 600 MG/50 ML RTUPB IV ONE (14:17)
[2017-10-24 14:27] LABS: ABSOLUTE EOSINOPHILS # (AUTO) 0.2 10^3/uL (0.0-0.6); ABSOLUTE LYMPHOCYTES (AUTO) 1.4 10^3/uL (0.5-4.7); ABSOLUTE MONOCYTES (AUTO) 0.7 10^3/uL (0.1-1.4); ABSOLUTE NEUT (AUTO) 3.9 10^3/uL (1.7-8.2); BASOPHILS % (AUTO) 0.6 % (0-2); EOSINOPHILS % (AUTO) 3.5 % (0-6); HEMATOCRIT 39.3 % (37.9-51.0); HEMOGLOBIN 13.1 g/dL (13.5-17.0); LYMPHOCYTES % (AUTO) 23.1 % (13-45); MEAN CORPUSCULAR HEMOGLOBIN 30.1 pg (27.0-33.4); MEAN CORPUSCULAR HGB CONC 33.2 g/dL (32.0-36.0); MEAN CORPUSCULAR VOLUME 91 fl (80-97); MONOCYTES % (AUTO) 10.7 % (3-13); PLATELET COUNT 294 10^3/uL (150-450); RED BLOOD COUNT 4.34 10^6/uL (4.35-5.55); RED CELL DISTRIBUTION WIDTH 13.8 % (11.5-14.0); SEGMENTED NEUTROPHILS % (AUTO) 62.1 % (42-78); TOTAL CELLS COUNTED % (AUTO) 100 %; WHITE BLOOD COUNT 6.2 10^3/uL (4.0-10.5)
[2017-10-24 14:48] LABS: ALANINE AMINOTRANSFERASE 23 U/L (21-72); ALBUMIN 3.6 g/dL (3.5-5.0); ALKALINE PHOSPHATASE 65 U/L (38-126); ANION GAP 10 (5-19); ASPARTATE AMINO TRANSFERASE 17 U/L (17-59); BILIRUBIN,DIRECT 0.2 mg/dL (0.0-0.4); BILIRUBIN,TOTAL 0.5 mg/dL (0.2-1.3); BLOOD UREA NITROGEN 11 mg/dL (7-20); CALCIUM 8.8 mg/dL (8.4-10.2); CARBON DIOXIDE 27 mmol/L (22-30); CHLORIDE 104 mmol/L (98-107); GLUCOSE 92 mg/dL (75-110); POTASSIUM 4.2 mmol/L (3.6-5.0); TOTAL PROTEIN 6.9 g/dL (6.3-8.2)
--- NOTE | 2017-10-24 15:02 | RADIOLOGY REPORT (SQ) ---
EXAM DESCRIPTION: FOOT LEFT 2 VIEWS COMPLETED DATE/TIME: 10/24/2017 2:48 pm REASON FOR STUDY: infection COMPARISON: None. NUMBER OF VIEWS: Three views. TECHNIQUE: AP, lateral and oblique radiographic images acquired of the left foot. LIMITATIONS: None. FINDINGS: MINERALIZATION: Normal. BONES: No acute fracture or dislocation. No worrisome bone lesions. JOINTS: No effusions. SOFT TISSUES: No soft tissue swelling. No foreign body. OTHER: No other significant finding. IMPRESSION: No acute findings. No conventional radiographic evidence of osteomyelitis. TECHNICAL DOCUMENTATION: JOB ID: [id number] [employer]- All Rights Reserved Reading location - IP/workstation name: [email or web address]
--- NOTE | 2017-10-24 15:02 | RADIOLOGY REPORT (SQ) ---
EXAM DESCRIPTION: ANKLE LEFT AP/LATERAL COMPLETED DATE/TIME: 10/24/2017 2:48 pm REASON FOR STUDY: infection COMPARISON: None. NUMBER OF VIEWS: Three views. TECHNIQUE: AP, lateral, and oblique radiographic images acquired of the left ankle. LIMITATIONS: None. FINDINGS: MINERALIZATION: Normal. BONES: No acute fracture or dislocation. No worrisome bone lesions. JOINTS: No effusions. SOFT TISSUES: No soft tissue swelling. No foreign body. OTHER: No other significant finding. IMPRESSION: NEGATIVE STUDY OF THE LEFT ANKLE. NO RADIOGRAPHIC EVIDENCE OF ACUTE INJURY. TECHNICAL DOCUMENTATION: JOB ID: [id number] [employer]- All Rights Reserved Reading location - IP/workstation name: [email or web address]
--- NOTE | 2017-10-24 16:27 | XCELERA REPORT ---
[address] [address] Lower Extremity Venous Evaluation Procedure: Color flow and duplex imaging of the veins of the left lower extremity as well as the right Common Femoral vein. Right Sided Venous Evaluation The right common femoral vein is fully compressible. Spontaneous and phasic flow is present in the right common femoral vein. Left Sided Venous Evaluation Enlarged, varicose, veins of Greater Saphenous, with echogenic content, partial Colour flow, in mid thigh GSV. Normal vessel filling wall to wall, compression and augmentation as well as Colour flow down to the infrageniculate veins. Interpretation Summary No duplex evidence of DVT or obstruction in the left lower extremity nor in the right Common Femoral vein. 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 Name: MARTHA PERKINS Age: 62 yrs Gender: Male : 1955 Patient Status: Emergency Patient Location: ER Study Date: 10/24/2017 03:35 PM Reason For Study: pain right leg / Hx clots Ordering Physician: CHEMO WILD Performed By: Arnaldo Osborne : CHEMO WILD > Matt Lilly
[2017-10-24] MEDS ORDERED: CLINDAMYCIN HCL 150 MG CAPSULE PO ONE ×2 (16:49→16:54)
--- NOTE | 2017-10-24 16:55 | ER Document Report ---
ED General - General Chief Complaint: Leg Swelling Stated Complaint: POSSIBLE LEFT FOOT INFECTION Time Seen by Provider: 10/24/17 13:33 TRAVEL OUTSIDE OF THE [place] IN LAST 30 DAYS: No - HPI Patient complains to provider of: Left leg swelling cellulitis Notes: Patient with a history of venous insufficiency in the left leg and a venous stasis wound states he has had increased redness for the last months and in for further evaluation. Patient states he is not on any antibiotics for cellulitis greater than 2 months. Patient states he does have a history of a DVT in his left leg. Patient is not on any blood thinning medication at this time. Denies any fevers chills nausea vomiting. Patient denies being diabetic at this time. Patient resting comfortably upon my evaluation was still toed boots on bilateral feet denies any trauma - Related Data Allergies/Adverse Reactions: No Known Allergies Allergy (Verified 09/16/17 17:37) Past Medical History - Social History Smoking Status: Never Smoker Chew tobacco use (# tins/day): No Frequency of alcohol use: None Drug Abuse: None Family History: Reviewed & Not Pertinent Patient has suicidal ideation: No Patient has homicidal ideation: No - Past Medical History Cardiac Medical History: Reports: Hx DVT Renal/ Medical History: Reports: Hx Kidney Stones. Denies: Hx Peritoneal Dialysis Psychiatric Medical History: Denies: Hx Depression - Immunizations Hx Diphtheria, Pertussis, Tetanus Vaccination: Yes Review of Systems - Review of Systems Constitutional: No symptoms reported EENT: No symptoms reported Cardiovascular: No symptoms reported Respiratory: No symptoms reported Gastrointestinal: No symptoms reported Genitourinary: No symptoms reported Male Genitourinary: No symptoms reported Musculoskeletal: Leg swelling, Other - Redness left leg Skin: No symptoms reported Hematologic/Lymphatic: No symptoms reported Neurological/Psychological: No symptoms reported Physical Exam - Vital signs Vitals: Temp Pulse Resp BP Pulse Ox 99.2 F 78 16 124/81 97 10/24/17 12:49 10/24/17 12:49 10/24/17 12:49 10/24/17 12:49 10/24/17 12:49 Interpretation: Normal - General General appearance: Appears well, Alert - HEENT Head: Normocephalic, Atraumatic Eyes: Normal Pupils: PERRL - Respiratory Respiratory status: No respiratory distress Chest status: Nontender Breath sounds: Normal Chest palpation: Normal - Cardiovascular Rhythm: Regular Heart sounds: Normal auscultation Murmur: No - Abdominal Inspection: Normal Distension: No distension Bowel sounds: Normal Tenderness: Nontender Organomegaly: No organomegaly - Back Back: Normal, Nontender - Extremities General upper extremity: Normal inspection, Nontender, Normal color, Normal ROM , Normal temperature General lower extremity: Nontender, Normal ROM, Normal temperature, Normal weight bearing, Other - Left cellulitic process going from the MCP joint of the toes up to the mid calf region. Range of motion is intact sensation and pulses are intact. There is no crepitus felt on examining the foot the skin is red and warm consistent with cellulitis. Right leg infected. No: Jj's sign - Neurological Neuro grossly intact: Yes Cognition: Normal Orientation: AAOx4 Edith Coma Scale Eye Opening: Spontaneous [place] Coma Scale Verbal: Oriented [place] Coma Scale Motor: Obeys Commands [place] Coma Scale Total: 15 Speech: Normal Motor strength normal: LUE, RUE, LLE, RLE Sensory: Normal - Psychological Associated symptoms: Normal affect, Normal mood - Skin Skin Temperature: Warm Skin Moisture: Dry Skin Color: Normal Course - Re-evaluation Re-evalutation: 10/24/17 18:13 Laboratory studies showed no leukocytosis no bandemia no signs of sepsis. Patient's x-rays also showed no gas formation or signs of ostium-itis. Patient has yet to be placed on antibiotics patient received clindamycin here in the ER. Long discussion with the patient about outpatient therapy versus inpatient therapy. Patient at the times agrees with outpatient therapy is that he can tolerate oral antibiotics will continue to monitor his leg if worsening he will come back to the ER for further evaluation. - Vital Signs Vital signs: Temp Pulse Resp BP Pulse Ox 99.2 F 78 13 115/67 100 10/24/17 12:49 10/24/17 12:49 10/24/17 17:04 10/24/17 17:04 10/24/17 17:04 - Laboratory Result Diagrams: 10/24/17 13:45 10/24/17 13:45 Laboratory results interpreted by me: 10/24/17 13:45 RBC 4.34 L Hgb 13.1 L Discharge - Discharge Clinical Impression: Cellulitis Qualifiers: Site of cellulitis: unspecified site Qualified Code(s): L03.90 - Cellulitis, unspecified Condition: Good Disposition: HOME, SELF-CARE Instructions: Cellulitis (OM) Additional Instructions: Your examination is consistent with a cellulitis of the left lower extremity. Please take antibiotics as prescribed. Return to ER if it looks like the cellulitis is worsening. Also return to ER immediately if you develop a fever or unable to take your antibiotics. Follow-up with your primary care physician return to ER if symptoms worsen. Prescriptions: Clindamycin HCl 300 mg PO QID #40 capsule Referrals: DONYA DOWLING PA-C [Primary Care Provider] - Follow up as needed
[2017-10-24 17:05] VITALS: BP 115/67
== END 2017-10-24 17:15 | disposition home or self-care (01) ==
LOC: ER 12:40
DX: L03.116 Cellulitis of left lower limb (principal); Z86.718 Personal history of other venous thrombosis and embolism
CPT/HCPCS: 99284; 96361; 96365; 36415; 87040; 85025; 80053; 93971 ×2; 73600; 73620; J7030